=== PATIENT | male | born 2000 | race Caucasian/White ===

== ENCOUNTER 2023-05-30 04:47 | Emergency (ER) | payer MEDICAID ==
[~2023-05-30] VITALS: Ht 180.3 cm; Wt 90.0 kg
[2023-05-30 04:59] VITALS: TEMP 99
[2023-05-30 08:30] VITALS: BP 106/76; PULSE 81; RESP 16
== END 2023-05-30 08:39 | disposition home or self-care (01) ==
LOC: EMS 04:49
DX: S00.12XA Contusion of left eyelid and periocular area, initial encounter (principal); F41.9 Anxiety disorder, unspecified; F12.90 Cannabis use, unspecified, uncomplicated; Y08.89XA Assault by other specified means, initial encounter; Y93.89 Activity, other specified; Y92.89 Other specified places as the place of occurrence of the external cause; Y99.8 Other external cause status
CPT/HCPCS: 70486; 99284; Z7502